=== PATIENT | male | born 1955 | race African-American/Black ===

== ENCOUNTER 2022-09-30 15:36 | Emergency (ER) | payer OTHER ==
[~2022-09-30] VITALS: Ht 177.8 cm; Wt 86.0 kg
[~2022-09-30 15:36] MED LIST: BABY ASPIRIN81 MG OR; LISINOP/HCTZ1 TA1 OR; NO MEDS
[2022-09-30 16:07] VITALS: BP 146/104
[2022-09-30 16:18] VITALS: BP 148/106
[2022-09-30 16:30] VITALS: BP 138/91
[2022-09-30] MEDS ORDERED: IMODIUM A-D2 M3 PO (16:45)
[2022-09-30] MEDS ORDERED: PAXLOVID PO (16:45)
[2022-09-30 16:55] VITALS: BP 138/91
== END 2022-09-30 17:03 | disposition home or self-care (01) | DRG 179 ==
LOC: ED 15:36
DX: U07.1 COVID-19 (principal); R50.9 Fever, unspecified; R19.7 Diarrhea, unspecified; R05.9 Cough, unspecified; R53.83 Other fatigue; I10 Essential (primary) hypertension

== ENCOUNTER 2022-10-27 15:53 | Observation (INO) | payer OTHER ==
[~2022-10-27] VITALS: Ht 177.8 cm; Wt 89.0 kg
[2022-10-27] VITALS (10 sets, daily range): BP systolic 120–141; BP diastolic 79–94
[~2022-10-27 15:53] MED LIST changes: +IMODIUM A-D2 M3 PO; +PAXLOVID PO
[2022-10-27 16:40] LABS: URINE BILIRUBIN - DIPSTICK NEGATIVE (NEGATIVE); URINE BLOOD DIPSTICK NEGATIVE (NEGATIVE); URINE COLOR YELLOW; URINE GLUCOSE - DIPSTICK NEGATIVE (NEGATIVE); URINE KETONE NEGATIVE (NEGATIVE); URINE LEUK ESTERASE NEGATIVE (NEGATIVE); URINE PROTEIN - DIPSTICK NEGATIVE (NEG-TRACE); URINE SPECIFIC GRAVITY 1.015; URINE UROBILINOGEN - DIPSTICK 0.2 E.U./dL (0.2)
[2022-10-27 16:41] LABS: BASO% 0.2 % (0-3); EOS% 1.4 % (0-8); HEMATOCRIT 38.9 % (39.0-50.0); IMMATURE GRANULOCYTES 0.4 % (0.0-5.0); MEAN CELL VOLUME 98.7 fL CALC (80.0-100.0); MEAN CORPUSCULAR HGB 33.2 pG CALC (26.0-32.0); MEAN CORPUSCULAR HGB CONC 33.7 g/dL CAL (32.0-36.0); MONO% 9.6 % (2-13); NEUT# 7.82 thou/uL (1.82-7.42); NEUT% 70.4 % (42-76); RED BLOOD COUNT 3.94 mill/uL (4.70-6.10); RED CELL DISTRI WIDTH 12.1 % (11.5-15.5)
[2022-10-27 16:48] LABS: HEMOGLOBIN 13.1 g/dl (14.0-18.0); URINE NITRITE - DIPSTICK NEGATIVE (Negative)
[2022-10-27 17:03] LABS: ALBUMIN 3.9 g/dL (3.2-5.0); ALKALINE PHOSPHATASE 73 u/l (38-126); ANION GAP 7 (6-22 (CALC)); BUN 9 mg/dL (8-23); BUN/CREATININE RATIO 9 (12-20 (CALC)); CARBON DIOXIDE 27 mmol/l (22-30); CHLORIDE 106 mmol/l (95-108); GFR FOR AFR.AMER. > 60 ML/MIN (>=60 (CALC)); GFR OTHER RACES > 60 ML/MIN (>=60 (CALC)); POTASSIUM 3.8 mmol/l (3.5-5.1); SGOT/AST 17 u/l (19-48); SODIUM 136 mmol/l (137-146)
[2022-10-27 17:13] LABS: BILIRUBIN, TOTAL 0.3 mg/dL (0.2-1.3)
[2022-10-27] MEDS ORDERED: ASPIRIN ADULT L81 M2 PO (21:02)
[2022-10-28 04:32] VITALS: BP 143/88
[2022-10-28 05:14] LABS: HEMOGLOBIN 13.6 g/dl (14.0-18.0); MEAN CELL VOLUME 99.3 fL CALC (80.0-100.0); MEAN CORPUSCULAR HGB 33.7 pG CALC (26.0-32.0); RED BLOOD COUNT 4.03 mill/uL (4.70-6.10); RED CELL DISTRI WIDTH 12.2 % (11.5-15.5)
[2022-10-28 05:34] LABS: ALBUMIN 3.8 g/dL (3.2-5.0); ALKALINE PHOSPHATASE 78 u/l (38-126); ANION GAP 10 (6-22 (CALC)); BUN 9 mg/dL (8-23); BUN/CREATININE RATIO 8 (12-20 (CALC)); CARBON DIOXIDE 24 mmol/l (22-30); CHLORIDE 108 mmol/l (95-108); CREATININE 1.1 mg/dL (0.7-1.3); GFR FOR AFR.AMER. > 60 ML/MIN (>=60 (CALC)); GFR OTHER RACES > 60 ML/MIN (>=60 (CALC)); MAGNESIUM 2.1 mg/dL (1.6-2.3); POTASSIUM 4.2 mmol/l (3.5-5.1); SGOT/AST 18 u/l (19-48); SODIUM 138 mmol/l (137-146); TOTAL PROTEIN 7.2 g/dL (6.3-8.2)
[2022-10-28 05:39] LABS: BILIRUBIN, TOTAL 1.1 mg/dL (0.2-1.3)
[2022-10-28 07:05] VITALS: BP 143/93
[2022-10-28 15:22] VITALS: BP 138/86
[2022-10-28 19:56] VITALS: BP 147/89
[2022-10-29 04:49] VITALS: BP 145/93
[2022-10-29 07:09] LABS: BASO% 0.2 % (0-3); EOS% 1.1 % (0-8); HEMATOCRIT 37.9 % (39.0-50.0); HEMOGLOBIN 12.7 g/dl (14.0-18.0); IMMATURE GRANULOCYTES 0.2 % (0.0-5.0); MEAN CORPUSCULAR HGB 33.2 pG CALC (26.0-32.0); MEAN CORPUSCULAR HGB CONC 33.5 g/dL CAL (32.0-36.0); MONO% 8.1 % (2-13); NEUT# 9.69 thou/uL (1.82-7.42); NEUT% 79.4 % (42-76); RED BLOOD COUNT 3.83 mill/uL (4.70-6.10); RED CELL DISTRI WIDTH 12.2 % (11.5-15.5)
[2022-10-29 07:26] LABS: ALBUMIN 3.2 g/dL (3.2-5.0); ALKALINE PHOSPHATASE 70 u/l (38-126); ANION GAP 9 (6-22 (CALC)); BILIRUBIN, TOTAL 1.1 mg/dL (0.2-1.3); BUN 7 mg/dL (8-23); BUN/CREATININE RATIO 7 (12-20 (CALC)); CARBON DIOXIDE 22 mmol/l (22-30); CHLORIDE 109 mmol/l (95-108); GFR FOR AFR.AMER. > 60 ML/MIN (>=60 (CALC)); GFR OTHER RACES > 60 ML/MIN (>=60 (CALC)); POTASSIUM 3.9 mmol/l (3.5-5.1); SGOT/AST 19 u/l (19-48); SODIUM 136 mmol/l (137-146); TOTAL PROTEIN 6.2 g/dL (6.3-8.2)
[2022-10-29 07:33] VITALS: BP 124/81
[2022-10-29 08:07] VITALS: BP 124/81
[2022-10-29] MEDS ORDERED: CIPROFLOXACN500 MG PO (12:33)
[2022-10-29] MEDS ORDERED: METRONIDAZOLE500 MG PO (12:35)
[2022-10-29] MEDS ORDERED: FLORASTOR250 M1 PO (12:36)
[2022-10-29] MEDS ORDERED: TAMSULOSIN0.4 MG PO (16:08)
== END 2022-10-29 13:25 | disposition home or self-care (01) | DRG 392 ==
LOC: ED 15:53 → MS2 19:46
PROVIDERS: Nurse Practitioner; ADMIT Internal Medicine; ATTEND Internal Medicine
DX: K57.20 Diverticulitis of large intestine with perforation and abscess without bleeding (principal); I10 Essential (primary) hypertension; N40.1 Benign prostatic hyperplasia with lower urinary tract symptoms; R39.15 Urgency of urination; R35.0 Frequency of micturition; K76.89 Other specified diseases of liver; F17.210 Nicotine dependence, cigarettes, uncomplicated; Z87.440 Personal history of urinary (tract) infections
CPT/HCPCS: J1650; Q9967